=== PATIENT | female | born 1990 | race Caucasian/White ===

== ENCOUNTER 2018-07-02 18:12 | Outpatient (CLI) | payer MEDICAID ==
[2018-07-02 19:59] LABS: ADD MAN DIFF? NO
[2018-07-02 20:09] LABS: WHITE BLOOD COUNT 6.5 10^3/ul (4.8-10.8)
[2018-07-02 20:09] LABS: BASOPHILS % 0.2 % (0.0-2.0); EOSINOPHILS # 0.1 10^3/ul (0.0-0.5); EOSINOPHILS % 0.8 % (0.0-7.0); HEMATOCRIT 28.7 % (37.0-47.0); HEMOGLOBIN 9.3 g/dl (12.0-16.0); LYMPHOCYTES # 1.6 10^3/ul (0.8-2.9); LYMPHOCYTES % 25.1 % (15.0-51.0); MEAN CORPUSCULAR HEMOGLOBIN 30.2 pg (29.0-33.0); MEAN CORPUSCULAR HGB CONC 32.4 g/dl (32.0-37.0); MEAN CORPUSCULAR VOLUME 93.2 fl (82.0-101.0); MEAN PLATELET VOLUME 11.8 fl (7.4-10.4); MONOCYTE # 0.6 10^3/ul (0.3-0.9); MONOCYTES % 9.3 % (0.0-11.0); NEUTROPHIL # 4.2 10^3/ul (1.6-7.5); NEUTROPHILS % 64.1 % (39.0-77.0); PLATELET COUNT 201 10^3/UL (140-415); RED BLOOD COUNT 3.08 10^6/ul (4.20-5.40); RED CELL DISTRIBUTION WIDTH 13.1 % (11.5-14.5)
[2018-07-02 20:23] LABS: ALANINE AMINOTRANSFERASE 11 IU/L (13-69); ALBUMIN 3.1 g/dl (3.3-4.9); ALBUMIN/GLOBULIN RATIO 1.03; ALKALINE PHOSPHATASE 202 IU/L (42-121); ANION GAP 6 (5-13); ASPARTATE AMINO TRANSFERASE 18 IU/L (15-46); BILIRUBIN,INDIRECT 0.3 mg/dl (0-1.1); BILIRUBIN,TOTAL 0.3 mg/dl (0.2-1.3); BLOOD UREA NITROGEN 10 mg/dl (7-20); CALCIUM 8.8 mg/dl (8.4-10.2); CARBON DIOXIDE 23 mmol/L (21-31); CHLORIDE 107 mmol/L (97-110); CREATININE 0.72 mg/dl (0.44-1.00); Estimated GFR > 60 mL/min (>60); GLUCOSE 83 mg/dl (70-220); SODIUM 136 mmol/L (135-144); TOTAL PROTEIN 6.1 g/dl (6.1-8.1); URIC ACID 5.3 mg/dl (3.1-7.9)
[2018-07-02 20:32] LABS: ADD UMIC NO; UR ASCORBIC ACID NEGATIVE (NEGATIVE); UR BILIRUBIN (Dip) NEGATIVE (NEGATIVE); UR BLOOD (Dip) NEGATIVE (NEGATIVE); UR CLARITY CLEAR (CLEAR); UR COLOR STRAW (YELLOW); UR GLUCOSE (Dip) NEGATIVE (NEGATIVE); UR KETONES (Dip) NEGATIVE (NEGATIVE); UR LEUKOCYTE ESTERASE (Dip) NEGATIVE Leu/ul (NEGATIVE); UR NITRITE (Dip) NEGATIVE (NEGATIVE); UR SPECIFIC GRAVITY (Dip) 1.006 (1.003-1.030); UR TOTAL PROTEIN (Dip) NEGATIVE (NEGATIVE); UR UROBILINOGEN (Dip) NEGATIVE (NEGATIVE)
== END 2018-07-02 22:35 | disposition home or self-care (01) ==
LOC: OBT 18:12 → L-D 18:13 → OBT 22:35
DX: O26.893 Other specified pregnancy related conditions, third trimester (principal); R03.0 Elevated blood-pressure reading, without diagnosis of hypertension; Z3A.36 36 weeks gestation of pregnancy
CPT/HCPCS: 76815; 76818; 80053; 81003; 84560; 85025

== ENCOUNTER 2018-07-04 09:09 | Outpatient (CLI) | payer MEDICAID ==
[2018-07-04 10:20] LABS: COLLECTION PERIOD 24 hrs
[2018-07-04 11:12] LABS: CREATININE 0.66 mg/dl (0.44-1.00)
[2018-07-04 12:14] LABS: COLLECTION PERIOD 24 hrs; CREATININE CLEARANCE 135.4 mls/min (84.0-162.0); CREATININE,URINE RANDOM 85.78 mg/dl (20-320); SCRET 0.66 mg/dl (0.44-1.00); VOLUME 1500 ml/24hrs; VOLUME 1500 mls
== END 2018-07-04 13:58 | disposition home or self-care (01) ==
LOC: OBT 09:09 → L-D 09:09 → OBT 13:58
DX: O13.3 Gestational [pregnancy-induced] hypertension without significant proteinuria, third trimester (principal); Z3A.37 37 weeks gestation of pregnancy
CPT/HCPCS: 76818; 82565; 82575; 84156

== ENCOUNTER 2018-07-08 12:46 | Outpatient (CLI) | payer MEDICAID | END 2018-07-08 15:08 | disposition home or self-care (01) | LOC: OBT 12:46 → L-D 12:46 → OBT 15:08 | DX: O13.3 Gestational [pregnancy-induced] hypertension without significant proteinuria, third trimester (principal); O36.8930 Maternal care for other specified fetal problems, third trimester, not applicable or unspecified; Z3A.37 37 weeks gestation of pregnancy | CPT/HCPCS: 76818 ==

== ENCOUNTER 2018-07-12 14:44 | Inpatient (IN) | payer MEDICAID ==
[2018-07-12 15:20] LABS: ADD MAN DIFF? NO
[2018-07-12 15:22] LABS: WHITE BLOOD COUNT 6.4 10^3/ul (4.8-10.8)
[2018-07-12 15:22] LABS: BASOPHILS % 0.2 % (0.0-2.0); EOSINOPHILS % 0.6 % (0.0-7.0); HEMATOCRIT 28.8 % (37.0-47.0); HEMOGLOBIN 9.3 g/dl (12.0-16.0); LYMPHOCYTES # 1.3 10^3/ul (0.8-2.9); LYMPHOCYTES % 19.8 % (15.0-51.0); MEAN CORPUSCULAR HGB CONC 32.3 g/dl (32.0-37.0); MEAN CORPUSCULAR VOLUME 92.9 fl (82.0-101.0); MONOCYTE # 0.5 10^3/ul (0.3-0.9); MONOCYTES % 7.5 % (0.0-11.0); NEUTROPHIL # 4.6 10^3/ul (1.6-7.5); NEUTROPHILS % 71.6 % (39.0-77.0); PLATELET COUNT 209 10^3/UL (140-415)
[2018-07-12 15:32] LABS: ADD UMIC YES; UR ASCORBIC ACID NEGATIVE (NEGATIVE); UR BILIRUBIN (Dip) NEGATIVE (NEGATIVE); UR BLOOD (Dip) NEGATIVE (NEGATIVE); UR CLARITY SLIGHTLY CLOUDY (CLEAR); UR COLOR AMBER (YELLOW); UR GLUCOSE (Dip) NEGATIVE (NEGATIVE); UR KETONES (Dip) NEGATIVE (NEGATIVE); UR LEUKOCYTE ESTERASE (Dip) NEGATIVE Leu/ul (NEGATIVE); UR MUCUS MODERATE /HPF (NONE SEEN); UR NITRITE (Dip) NEGATIVE (NEGATIVE); UR NONSQUAMOUS EPITHELIAL CELL 1 /HPF (NONE SEEN); UR RBC 0 /HPF (0-5); UR SPECIFIC GRAVITY (Dip) 1.019 (1.003-1.030); UR SQUAMOUS EPITHELIAL CELL FEW /HPF (FEW); UR TOTAL PROTEIN (Dip) 2+ mg/dl (NEGATIVE); UR UROBILINOGEN (Dip) 2+ mg/dL (NEGATIVE); UR WBC 4 /HPF (0-5)
[2018-07-12 15:41] LABS: PROTIME 12.2 Sec (11.9-14.9)
[2018-07-12 15:42] LABS: PARTIAL THROMBOPLASTIN TIME 26.5 Sec (23.0-35.0)
[2018-07-12 15:43] LABS: ALANINE AMINOTRANSFERASE 8 IU/L (13-69); ALBUMIN 3.2 g/dl (3.3-4.9); ALBUMIN/GLOBULIN RATIO 1.03; ALKALINE PHOSPHATASE 187 IU/L (42-121); ANION GAP 5 (5-13); ASPARTATE AMINO TRANSFERASE 19 IU/L (15-46); BILIRUBIN,INDIRECT 0.3 mg/dl (0-1.1); BILIRUBIN,TOTAL 0.3 mg/dl (0.2-1.3); BLOOD UREA NITROGEN 9 mg/dl (7-20); CALCIUM 8.7 mg/dl (8.4-10.2); CARBON DIOXIDE 21 mmol/L (21-31); CHLORIDE 109 mmol/L (97-110); CREATININE 0.65 mg/dl (0.44-1.00); Estimated GFR > 60 mL/min (>60); GLUCOSE 100 mg/dl (70-220); SODIUM 135 mmol/L (135-144); TOTAL PROTEIN 6.3 g/dl (6.1-8.1); URIC ACID 5.3 mg/dl (3.1-7.9)
[2018-07-12] MEDS ORDERED: LACTATED RINGER'S 1,000 ML IV (20:44)
[2018-07-12] MEDS ORDERED: MISOPROSTOL 100 MCG TAB VAG (21:00)
[2018-07-12] MEDS ORDERED: LIDOCAINE 1% (MPF) 30 ML INJ INJ (21:00)
[2018-07-12] MEDS ORDERED: OXYTOCIN 30 UNITS/LR 500 ML IV (21:00)
[2018-07-12] MEDS ORDERED: MISOPROSTOL 50 MCG CAPSULE VAG (21:00)
[2018-07-12] MEDS ORDERED: MISOPROSTOL 200 MCG TAB PR (21:00)
[2018-07-12] MEDS ORDERED: CARBOPROST 250 MCG INJ IM (21:00)
[2018-07-12] MEDS ORDERED: METHYLERGONOVINE 0.2 MG INJ IM (21:00)
[2018-07-12] MEDS: LACTATED RINGER'S 1,000 ML IV (21:12)
[2018-07-12 21:53] LABS: HEPATITIS B SURFACE ANTIBODY POSITIVE (NEGATIVE)
[2018-07-12] MEDS: OXYTOCIN 30 UNITS/LR 500 ML IV (22:02)
[2018-07-12] MEDS: PHENOBARBITAL 32.4 MG TAB PO (22:03)
[2018-07-13] MEDS: LACTATED RINGER'S 1,000 ML IV ×3 (02:23→14:10)
[2018-07-13] MEDS: OXYTOCIN 30 UNITS/LR 500 ML IV ×2 (09:49→10:40)
[2018-07-13] MEDS ORDERED: OXYCODONE/ASPIRIN (4.88/325) TAB PO (12:30)
[2018-07-13] MEDS ORDERED: CARBOPROST 250 MCG INJ IM (12:30)
[2018-07-13] MEDS ORDERED: ZOLPIDEM 5 MG TAB PO (12:30)
[2018-07-13] MEDS ORDERED: MISOPROSTOL 200 MCG TAB PR (12:30)
[2018-07-13] MEDS ORDERED: OXYTOCIN 30 UNITS/LR 500 ML IV (12:30)
[2018-07-13] MEDS ORDERED: METHYLERGONOVINE 0.2 MG INJ IM (12:30)
[2018-07-13] MEDS: OXYCODONE/ASPIRIN (4.88/325) TAB PO (12:32)
[2018-07-13] MEDS: BENZOCAINE 20% 56 ML SPRAY TOP (12:48)
[2018-07-13] MEDS: WITCH HAZEL/GLYCERIN PAD PR (12:49)
[2018-07-13] MEDS: LANOLIN 7 GM TUBE TOP (12:49)
[2018-07-13] MEDS ORDERED: IBUPROFEN 600 MG TAB (12:51)
[2018-07-13] MEDS: IBUPROFEN 600 MG TAB PO ×2 (12:59→18:02)
[2018-07-13 17:24] LABS: RAPID PLASMA REAGIN NONREACTIVE (NR)
[2018-07-14] MEDS: SENNA/DOCUSATE NA (8.6MG/50MG) TAB PO ×3 (01:04→21:25)
[2018-07-14] MEDS: IBUPROFEN 600 MG TAB PO ×4 (01:04→18:14)
[2018-07-14] MEDS: LACTATED RINGER'S 1,000 ML IV ×3 (01:39→20:44)
[2018-07-14 07:30] LABS: ADD MAN DIFF? NO
[2018-07-14 07:35] LABS: WHITE BLOOD COUNT 10.8 10^3/ul (4.8-10.8)
[2018-07-14 07:35] LABS: BASOPHILS % 0.4 % (0.0-2.0); EOSINOPHILS # 0.1 10^3/ul (0.0-0.5); EOSINOPHILS % 0.7 % (0.0-7.0); HEMATOCRIT 30.3 % (37.0-47.0); HEMOGLOBIN 9.8 g/dl (12.0-16.0); LYMPHOCYTES # 1.8 10^3/ul (0.8-2.9); LYMPHOCYTES % 16.4 % (15.0-51.0); MEAN CORPUSCULAR HEMOGLOBIN 30.2 pg (29.0-33.0); MEAN CORPUSCULAR HGB CONC 32.3 g/dl (32.0-37.0); MEAN CORPUSCULAR VOLUME 93.2 fl (82.0-101.0); MEAN PLATELET VOLUME 11.8 fl (7.4-10.4); MONOCYTE # 0.7 10^3/ul (0.3-0.9); MONOCYTES % 6.7 % (0.0-11.0); NEUTROPHIL # 8.1 10^3/ul (1.6-7.5); NEUTROPHILS % 75.4 % (39.0-77.0); PLATELET COUNT 197 10^3/UL (140-415); RED BLOOD COUNT 3.25 10^6/ul (4.20-5.40); RED CELL DISTRIBUTION WIDTH 13.3 % (11.5-14.5)
[2018-07-14] MEDS: LABETALOL 200 MG TAB GTB ×2 (10:04→21:24)
[2018-07-15] MEDS: IBUPROFEN 600 MG TAB PO ×4 (00:35→18:47)
[2018-07-15] MEDS: LACTATED RINGER'S 1,000 ML IV (04:44)
[2018-07-15] MEDS: DIPHTH/TET/ACEL PERTUSS (ADULT) 0.5 ML VIAL IM* (09:00)
[2018-07-15] MEDS: LABETALOL 200 MG TAB GTB ×3 (09:16→22:00)
[2018-07-15] MEDS: SENNA/DOCUSATE NA (8.6MG/50MG) TAB PO ×2 (09:16→21:23)
[2018-07-16] MEDS: IBUPROFEN 600 MG TAB PO ×4 (00:37→17:39)
[2018-07-16] MEDS: LABETALOL 200 MG TAB GTB ×3 (05:50→21:58)
[2018-07-16] MEDS: SENNA/DOCUSATE NA (8.6MG/50MG) TAB PO ×2 (08:56→21:00)
[2018-07-17] MEDS: NIFEdipine (XL) 30 MG TAB PO ×2 (00:10→09:19)
[2018-07-17 03:02] LABS: ADD UMIC YES; UR ASCORBIC ACID NEGATIVE (NEGATIVE); UR BILIRUBIN (Dip) NEGATIVE (NEGATIVE); UR BLOOD (Dip) 3+ mg/dL (NEGATIVE); UR CLARITY SLIGHTLY CLOUDY (CLEAR); UR COLOR STRAW (YELLOW); UR GLUCOSE (Dip) NEGATIVE (NEGATIVE); UR KETONES (Dip) NEGATIVE (NEGATIVE); UR LEUKOCYTE ESTERASE (Dip) 2+ Leu/ul (NEGATIVE); UR NITRITE (Dip) NEGATIVE (NEGATIVE); UR RBC 0 /HPF (0-5); UR SPECIFIC GRAVITY (Dip) 1.005 (1.003-1.030); UR SQUAMOUS EPITHELIAL CELL FEW /HPF (FEW); UR TOTAL PROTEIN (Dip) NEGATIVE (NEGATIVE); UR UROBILINOGEN (Dip) NEGATIVE (NEGATIVE); UR WBC 27 /HPF (0-5)
[2018-07-17] MEDS: LABETALOL 200 MG TAB GTB ×2 (06:00→14:10)
[2018-07-17] MEDS: IBUPROFEN 600 MG TAB PO ×4 (06:00→12:29)
[2018-07-17] MEDS: SENNA/DOCUSATE NA (8.6MG/50MG) TAB PO (09:19)
[2018-07-17 10:08] LABS: ADD MAN DIFF? NO
[2018-07-17 10:11] LABS: BASOPHILS % 0.2 % (0.0-2.0); EOSINOPHILS # 0.1 10^3/ul (0.0-0.5); EOSINOPHILS % 1.4 % (0.0-7.0); HEMATOCRIT 29.4 % (37.0-47.0); HEMOGLOBIN 9.3 g/dl (12.0-16.0); LYMPHOCYTES # 0.8 10^3/ul (0.8-2.9); LYMPHOCYTES % 13.1 % (15.0-51.0); MEAN CORPUSCULAR HGB CONC 31.6 g/dl (32.0-37.0); MEAN CORPUSCULAR VOLUME 94.8 fl (82.0-101.0); MEAN PLATELET VOLUME 10.4 fl (7.4-10.4); MONOCYTE # 0.3 10^3/ul (0.3-0.9); MONOCYTES % 4.9 % (0.0-11.0); NEUTROPHILS % 79.9 % (39.0-77.0); PLATELET COUNT 228 10^3/UL (140-415); RED CELL DISTRIBUTION WIDTH 13.7 % (11.5-14.5)
[2018-07-17 10:11] LABS: WHITE BLOOD COUNT 6.3 10^3/ul (4.8-10.8)
[2018-07-17 10:32] LABS: ALANINE AMINOTRANSFERASE 26 IU/L (13-69); ALBUMIN 3.4 g/dl (3.3-4.9); ALBUMIN/GLOBULIN RATIO 1.13; ALKALINE PHOSPHATASE 169 IU/L (42-121); ANION GAP 7 (5-13); ASPARTATE AMINO TRANSFERASE 37 IU/L (15-46); BILIRUBIN,INDIRECT 0.6 mg/dl (0-1.1); BILIRUBIN,TOTAL 0.6 mg/dl (0.2-1.3); BLOOD UREA NITROGEN 8 mg/dl (7-20); CALCIUM 8.7 mg/dl (8.4-10.2); CARBON DIOXIDE 25 mmol/L (21-31); CHLORIDE 108 mmol/L (97-110); CREATININE 0.64 mg/dl (0.44-1.00); Estimated GFR > 60 mL/min (>60); GLUCOSE 76 mg/dl (70-220); POTASSIUM 3.9 mmol/L (3.5-5.1); SODIUM 140 mmol/L (135-144); TOTAL PROTEIN 6.4 g/dl (6.1-8.1)
== END 2018-07-17 18:35 | disposition home or self-care (01) | DRG 807 ==
LOC: OBT 14:44 → PP1 07-13 12:14 → L-D 14:44 → OBT 20:35 → L-D 20:35
PROVIDERS: Obstetrics & Gynecology
PROC: 10E0XZZ Delivery of Products of Conception, External Approach (ICD-10-PCS; principal; 2018-07-13)
PROC: 3E033VJ Introduction of Other Hormone into Peripheral Vein, Percutaneous Approach (ICD-10-PCS; 2018-07-13)
DX: O14.94 Unspecified pre-eclampsia, complicating childbirth (principal); Z37.0 Single live birth; O69.81X0 Labor and delivery complicated by cord around neck, without compression, not applicable or unspecified; O70.0 First degree perineal laceration during delivery; Z3A.38 38 weeks gestation of pregnancy
CPT/HCPCS: 76815; 76818; 80053; 81001; 84560; 85025; 85384; 85610; 85730; 86592; 86706; 86850; 86900; 86901; 87086; 90715